=== PATIENT | female | born 1980 | race Caucasian/White ===

== ENCOUNTER 2022-10-05 09:56 | Outpatient (CLI) | payer BC | END 2022-10-05 09:57 | disposition home or self-care (01) | LOC: CSHMAMMO 09:56 | PROVIDERS: ATTEND Obstetrics & Gynecology | DX: Z12.31 Encounter for screening mammogram for malignant neoplasm of breast (principal) | CPT/HCPCS: 77063; 77067 ==

== ENCOUNTER 2023-10-08 10:43 | Outpatient (CLI) | payer BC | END 2023-10-08 10:44 | disposition home or self-care (01) | LOC: CSHMAMMO 10:43 | PROVIDERS: ATTEND Obstetrics & Gynecology | DX: Z12.31 Encounter for screening mammogram for malignant neoplasm of breast (principal) | CPT/HCPCS: 77063; 77067 ==